=== PATIENT | female | born 1970 | race Caucasian/White ===

== ENCOUNTER 2018-06-04 14:53 | Observation (INO) | payer OTHER ==
[~2018-06-04] VITALS: Ht 167.6 cm; Wt 70.7 kg
[2018-06-04] MEDS ORDERED: HYDROmorphone 1 MG/ML, 1ML IVPush PRN (15:00)
[2018-06-04] MEDS ORDERED: SODIUM CHLORIDE 0.9% 1,000ML IVBOLUS ONE ×2 (15:00→17:00)
[2018-06-04] MEDS ORDERED: HYDROmorphone 2 MG/ML, 1ML ONE (15:00)
[2018-06-04] MEDS ORDERED: ONDANSETRON 2MG/ML, 2ML ONE (15:00)
[2018-06-04] MEDS ORDERED: SODIUM CHLORIDE FLUSH 10ML SYR IVF ONE (15:00)
[2018-06-04] MEDS ORDERED: CEFTRIAXONE 1,000 MG in SODIUM CHLORIDE 0.9% 50 ML IVPB ONE (15:00)
[2018-06-04] MEDS ORDERED: CEFTRIAXONE PMX 1GM/50ML 50 ML ONE (15:17)
[2018-06-04 15:29] LABS: BASOPHILS # (AUTO) 0.03 x10^3/uL (0-0.1); BASOPHILS % (AUTO) 0 % (0-1); EOSINOPHILS # (AUTO) 0.03 x10^3/uL (0-0.4); EOSINOPHILS % (AUTO) 0 % (1-7); LYMPHOCYTES # (AUTO) 2.94 x10^3/uL (1-3.4); LYMPHOCYTES % (AUTO) 34 % (22-44); MD NO; MEAN CORPUSCULAR HEMOGLOBIN 32.1 pg (27.0-34.8); MEAN CORPUSCULAR HGB CONC 34.9 g/dL (32.4-35.8); MEAN CORPUSCULAR VOLUME 91.8 fL (80-100); MEAN PLATELET VOLUME 8.9 fL (7.4-10.4); MONOCYTES % (AUTO) 6 % (2-9); NEUTROPHILS # (AUTO) 5.14 x10^3/uL (1.8-6.8); NEUTROPHILS % (AUTO) 59 % (42-75); PLATELET COUNT 183 x10^3/uL (130-400); RED BLOOD COUNT 4.71 x10^6/uL (3.82-5.3); RED CELL DISTRIBUTION WIDTH 12.7 % (9.6-15.2)
[2018-06-04] MEDS ORDERED: CEFTRIAXONE PMX 1GM/50ML 50 ML IVPB ONE (15:30)
[2018-06-04] MEDS ORDERED: SODIUM CHLORIDE 0.9%, 500ML IVBOLUS ONE (15:30)
[2018-06-04 15:35] LABS: ALANINE AMINOTRANSFERASE 26 U/L (12-78); ALBUMIN 3.5 g/dL (3.4-5.0); ANION GAP 10 mmol/L (5-15); CALCIUM 8.9 mg/dL (8.5-10.1); CHLORIDE 109 mmol/L (98-107); CREATININE 0.87 mg/dL (0.55-1.02)
[2018-06-04 15:38] LABS: ALKALINE PHOSPHATASE 63 U/L (45-117); BILIRUBIN,TOTAL 0.4 mg/dL (0.2-1.0); TOTAL PROTEIN 7.5 g/dL (6.4-8.2)
[2018-06-04] MEDS ORDERED: KETOROLAC 30 MG/1 ML ONE (15:47)
[2018-06-04] MEDS ORDERED: PHENAZOPYRIDINE 200 MG TABLET ONE (15:47)
[2018-06-04] MEDS ORDERED: KETOROLAC 30 MG/1 ML IVPush ONE (16:00)
[2018-06-04] MEDS ORDERED: PHENAZOPYRIDINE 200 MG TABLET PO ONE (16:00)
[2018-06-04] MEDS ORDERED: PROMETHAZINE 25 MG/ML, 1ML ONE (16:19)
[2018-06-04] MEDS ORDERED: PROMETHAZINE 25 MG/ML, 1ML IM ONE (16:30)
[2018-06-04 16:52] LABS: MICROSCOPIC INDICATED
[2018-06-04 18:25] VITALS: BP 105/62
[2018-06-04] MEDS ORDERED: IBUPROFEN 600 MG TABLET PO PRN (18:30)
[2018-06-04] MEDS ORDERED: morphine SULFATE 10 MG/ML, 1ML IVPush PRN (18:30)
[2018-06-04] MEDS: SODIUM CHLORIDE 0.9% 1,000 ML IV SCH (18:37)
[2018-06-04 18:47] VITALS: BP 97/59
[2018-06-04 19:43] LABS: MICROSCOPIC AUTO
[2018-06-04 19:44] LABS: CULTURE INDICATED? YES
[2018-06-04] MEDS ORDERED: ONDANSETRON 2MG/ML, 2ML IVPush PRN (20:00)
[2018-06-04] MEDS ORDERED: SPIR100T4 PO (21:14)
[2018-06-04] MEDS ORDERED: ALBU18HF INH (21:14)
[2018-06-05 01:41] VITALS: BP 95/61
[2018-06-05] MEDS: ACETAMINOPHEN 325 MG TABLET PO PRN ×3 (01:46→13:23)
[2018-06-05 01:58] VITALS: BP 85/45
[2018-06-05 02:10] VITALS: BP 95/61
[2018-06-05 04:55] LABS: BASOPHILS # (AUTO) 0.02 x10^3/uL (0-0.1); BASOPHILS % (AUTO) 0 % (0-1); EOSINOPHILS # (AUTO) 0.03 x10^3/uL (0-0.4); EOSINOPHILS % (AUTO) 0 % (1-7); LYMPHOCYTES # (AUTO) 1.78 x10^3/uL (1-3.4); LYMPHOCYTES % (AUTO) 26 % (22-44); MD NO; MEAN CORPUSCULAR HGB CONC 34.9 g/dL (32.4-35.8); MEAN CORPUSCULAR VOLUME 91.7 fL (80-100); MEAN PLATELET VOLUME 8.9 fL (7.4-10.4); MONOCYTES # (AUTO) 0.39 x10^3/uL (0.2-0.8); MONOCYTES % (AUTO) 6 % (2-9); NEUTROPHILS # (AUTO) 4.52 x10^3/uL (1.8-6.8); NEUTROPHILS % (AUTO) 67 % (42-75); PLATELET COUNT 126 x10^3/uL (130-400); RED BLOOD COUNT 3.57 x10^6/uL (3.82-5.3); RED CELL DISTRIBUTION WIDTH 13.1 % (9.6-15.2)
[2018-06-05] MEDS: SODIUM CHLORIDE 0.9% 1,000 ML IV SCH ×2 (05:44→11:20)
[2018-06-05] MEDS ORDERED: CEFTRIAXONE PMX 1GM/50ML 50 ML IV SCH (08:00)
[2018-06-05 08:28] VITALS: BP 96/59
[2018-06-05 15:27] VITALS: BP 98/59
[2018-06-05 20:11] VITALS: BP 99/61
== END 2018-06-05 20:40 | disposition home or self-care (01) ==
LOC: ED 17:03 → EDIP 17:04 → INTOOBSV 17:04 → ED 17:16 → 4NOR 18:14
PROVIDERS: ADMIT Hospitalist; ATTEND Hospitalist
DX: N39.0 Urinary tract infection, site not specified (principal); R30.9 Painful micturition, unspecified; E86.9 Volume depletion, unspecified; N10 Acute pyelonephritis; Z83.3 Family history of diabetes mellitus
CPT/HCPCS: 36415; 80053; 81001; 83605; 85025; 87040; 87086; 96365; 96366; 96372; 96375; 99285; G0378; J0696; J1170; J1885; J2550; J7030; J7040; 96361

== ENCOUNTER → 2018-06-25 | Outpatient (CLI) | payer OTHER ==
[~2018-06-25] MED LIST: ALBU18HF INH; SPIR100T4 PO
== END | disposition home or self-care (01) ==
LOC: CFH 13:44
PROVIDERS: ATTEND Obstetrics & Gynecology Gynecology
DX: Z12.31 Encounter for screening mammogram for malignant neoplasm of breast (principal)
CPT/HCPCS: 77067

== ENCOUNTER → 2018-07-16 | Outpatient (CLI) | payer OTHER | END | disposition home or self-care (01) | LOC: RAD 12:09 | PROVIDERS: ATTEND Family Medicine | DX: M25.462 Effusion, left knee (principal); M79.9 Soft tissue disorder, unspecified ==